=== PATIENT | male | born 1970 | race Caucasian/White ===

== ENCOUNTER 2018-02-16 10:46 | Emergency (ER) | payer MEDICAID ==
[~2018-02-16] VITALS: Ht 172.7 cm; Wt 92.3 kg
[2018-02-16 10:56] VITALS: BP 147/94
--- NOTE | 2018-02-16 11:03 | NUR ---
PATIENT PRESENTS TO ED WITH n/v/d x 1 week . SKIN IS PINK/WARM/DRY; AAOX4 WITH EVEN AND STEADY GAIT; LUNGS CLEAR BL; HR EVEN AND REGULAR; PT DENIES ANY FEVER, CP, SOB, OR COUGH AT THIS TIME; PATIENT STATES PAIN OF 6/10 AT THIS TIME; VSS; PATIENT POSITIONED FOR COMFORT; HOB ELEVATED; BEDRAILS UP X2; BED DOWN. ER MD MADE AWARE OF PT STATUS.
--- NOTE | 2018-02-16 11:03 | NUR ---
PT AMBULATED TO BED 12
--- NOTE | 2018-02-16 11:35 | NUR ---
at bedside evaluating pt.
[2018-02-16] MEDS ORDERED: ONDANSETRON 4 MG ODT PO ONE (11:45)
--- NOTE | 2018-02-16 12:20 | NUR ---
Note undone in EDM - 02/16/18 at 1226 by [email or web address] PATIENT PRESENTS TO ED WITH n/v/d x 1 week v/s t 97.4 p 85 r 18 b/p 147/94 . PT states N/V/D;x 1 week SKIN IS PINK/WARM/DRY; AAOX4 WITH EVEN AND STEADY GAIT; LUNGS CLEAR BL; HR EVEN AND REGULAR; PT DENIES ANY FEVER, CP, SOB, OR COUGH AT THIS TIME; PATIENT STATES PAIN OF 0/10 AT THIS TIME; VSS; PATIENT POSITIONED FOR COMFORT; HOB ELEVATED; BEDRAILS UP X2; BED DOWN. ER MD MADE AWARE OF PT STATUS.
[2018-02-16 12:26] VITALS: BP 142/88
--- NOTE | 2018-02-16 12:28 | NUR ---
Patient discharged with v/s stable. Written and verbal after care instructions given and explained. Patient alert, oriented and verbalized understanding of instructions. Ambulatory with steady gait. All questions addressed prior to discharge. ID band removed. Patient advised to follow up with PMD. Rx of motrin, zofran.and cipro given. Patient educated on indication of medication including possible reaction and side effects. Opportunity to ask questions provided and answered.
== END 2018-02-16 12:28 | disposition home or self-care (01) ==
LOC: MED 10:46
DX: R10.32 Left lower quadrant pain (principal); R11.2 Nausea with vomiting, unspecified; R19.7 Diarrhea, unspecified; Z88.0 Allergy status to penicillin
CPT/HCPCS: 99283; S0119

== ENCOUNTER 2018-03-29 12:50 | Inpatient (IN) | payer MEDICAID ==
[~2018-03-29] VITALS: Ht 177.8 cm; Wt 94.8 kg
--- NOTE | 2018-03-29 01:00 | NUR ---
PT IN BED SLEEPING AROUSABLE TO NAME. PT ALLOWED STAFF TO TAKE THE MIDNIGHT V/S WITHOUT ISSUE. PT IV SITE PATNET AND IV RUNNING ORDERED. NO S/S OF SEZIURE ACTIVITY BUT SEIZURE PRECACUTIONS IN PLACE ALSO BED IS LOW WITH CALL ESTEBAN IN REACH AND BED IN LOW POSITION.
[2018-03-29 12:53] VITALS: BP 161/96
--- NOTE | 2018-03-29 13:00 | NUR ---
47/M BIB MOTHER C/O LOWER ABD & N/V/D X 3 DAYS. HX OF HTN, SLEEP APNEA & SEIZURES AND SEEN HERE FOR SAME ABOUT TWO WEEKS AGO. ABD: SOFT. SKIN IS PINK/WARM/DRY; AAOX4 WITH EVEN AND STEADY GAIT; LUNGS CLEAR BL; HR EVEN AND REGULAR; PT DENIES ANY FEVER, CP, SOB, OR COUGH AT THIS TIME; PATIENT STATES PAIN OF 6/10 AT THIS TIME. PATIENT POSITIONED FOR COMFORT; HOB ELEVATED; BEDRAILS UP X2; BED DOWN. KRISTIN ANDERSON MADE AWARE OF PT STATUS. Addendum: 03/29/18 at 1632 by [email or web address] pt stated don't take any meds .
--- NOTE | 2018-03-29 13:08 | NUR ---
Sofia moreno in [facility] - 03/29/18 at 1328 by [email or web address] Patient being evaluated by DR BIANCHI at bedside.
--- NOTE | 2018-03-29 13:11 | NUR ---
Dr. Neff evaluating patient at bedside.
[2018-03-29] MEDS ORDERED: MORPHINE SULFATE 4 MG/ML SYR IVP ONE ×3 (13:15→15:40)
[2018-03-29] MEDS ORDERED: ONDANSETRON 4 MG/2 ML VIAL IVP ONE (13:15)
[2018-03-29] MEDS ORDERED: NACL 0.9% 1,000 ML IV ONE (13:15)
[2018-03-29 13:29] LABS: BASOPHILS # (AUTO) 0.1 K/uL (0.00-0.22); BASOPHILS % (AUTO) 1.4 % (0.0-2.0); EOSINOPHILS % (AUTO) 0.5 % (0.0-4.0); HEMATOCRIT 47.8 % (36-52); HEMOGLOBIN 16.7 g/dL (12.0-18.0); LYMPHOCYTES # (AUTO) 1.1 K/uL (2.0-11.5); LYMPHOCYTES % (AUTO) 24.8 % (20.5-51.1); MEAN CORPUSCULAR HEMOGLOBIN 33 pg (27-31); MEAN CORPUSCULAR HGB CONC 35 g/dL (33-37); MEAN CORPUSCULAR VOLUME 94.2 fL (80-94); MONOCYTES # (AUTO) 0.6 K/uL (0.8-1.0); MONOCYTES % (AUTO) 13.7 % (1.7-9.3); NEUTROPHILS # (AUTO) 2.6 K/uL (1.8-7.7); NEUTROPHILS % (AUTO) 59.6 % (42.2-75.2); PLATELET COUNT (AUTO) 309 K/uL (140-450); RED BLOOD CELL COUNT(AUTO) 5.07 MIL/uL (4.20-6.10); RED CELL DISTRIBUTION WIDTH 13.7 % (11.6-13.7); WHITE BLOOD COUNT (AUTO) 4.3 K/uL (4.8-10.8)
[2018-03-29 13:49] LABS: ANION GAP 14.4 (8-16); CARBON DIOXIDE 25.5 mmol/L (21-32); POTASSIUM 3.9 mmol/L (3.5-5.1); TOTAL BILIRUBIN 0.6 mg/dL (0.0-1.0)
[2018-03-29 14:00] LABS: ALBUMIN 3.5 g/dL (3.4-5.0)
--- NOTE | 2018-03-29 14:40 | NUR ---
PT TAKEN TO CT VIA GURHELENA ACCOMPANIED BY HYDROMETEOROLOGIST.
--- NOTE | 2018-03-29 14:49 | NUR ---
PT RETURNED FROM CT VIA RNEY ACCOMPANIED BY sonarDesign.
--- NOTE | 2018-03-29 15:38 | NUR ---
Patient being reevaluated by DR BIANCHI at bedside.
[2018-03-29] MEDS ORDERED: LEVOFLOXACIN 750 MG/D5W PREMIX 150 ML IV ONE (15:40)
[2018-03-29] MEDS ORDERED: metroNIDAZOLE 500 MG/NS PREMIX 100 ML IV ONE (15:40)
[2018-03-29] MEDS ORDERED: ONDANSETRON 4 MG/2 ML VIAL IM/IVP PRN (15:50)
[2018-03-29] MEDS: NACL 0.9% 1,000 ML IV SCH (15:50)
[2018-03-29] MEDS ORDERED: ACETAMINOPHEN 325 MG TAB PO PRN (15:50)
[2018-03-29] MEDS ORDERED: DOCUSATE SODIUM 100 MG GELCAP PO PRN (15:50)
[2018-03-29] MEDS ORDERED: HYDROcodone/APAP 7.5/325 MG 1 TAB PO PRN (15:50)
--- NOTE | 2018-03-29 16:07 | NUR ---
Dr. Miles evaluating patient at bedside.
--- NOTE | 2018-03-29 16:28 | NUR ---
x ray at bedside.
--- NOTE | 2018-03-29 16:47 | NUR ---
Patient will be admitted to care of DR CRESPO. Admited to TELE. Will go to room 112B. Belongings list completed. Report to MADELINE MONTES.
[2018-03-29 16:50] VITALS: BP 124/89
[2018-03-29 16:50] LABS: APPEARANCE,URINE CLOUDY (CLEAR); BILIRUBIN,URINE NEGATIVE (NEGATIVE); BLOOD, URINE 1+ (NEGATIVE); COLOR,URINE YELLOW (YELLOW); LEUKOCYTE ESTERASE ,URINE NEGATIVE (NEGATIVE); NITRITE, URINE NEGATIVE (NEGATIVE); PH,URINE 5.5 (5.0-9.0); UGLUCOSE NEGATIVE (NEGATIVE)
--- NOTE | 2018-03-29 16:50 | NUR ---
PATIENT ARRIVED VIA GURNEY FROM E.. PATIENT ABLE TO AMBULATE FROM GURNEY TO BED. PATIENT IS ALERT AND ORIENTED X4 AT THIS TIME. RECEIVED REPORT FROM E.R. NURSE. PATIENT ACCOMPANIED BY FAMILY MEMBER. NO SIGNS OF NAUSEA OR VOMITING. NO COMPLAINTS OF DIARRHEA AT THIS TIME. NO PAIN NOTED. NO SIGNS OF RESPIRATORY DISTRESS. PATIENT HAS FLAGYL HANGING AT 100 ML/HR. WILL FINISH IV BAG AND HANG LEVAQUIN NEXT. SWABBED PATIENT'S NOSE FOR MRSA SPECIMEN. APPLIED TELE MONITOR LEADS TO PATIENT. WILL CONTINUE TO MONITOR PATIENT.
[2018-03-29 16:52] LABS: BARBITURATE, URINE NEG. ng/ml (NEG <=200); BENZODIAZEPINE, URINE NEG. ng/mL (NEG <=200); CANNABINOID, URINE NEG. ng/mL (NEG <=50); COCAINE, URINE NEG. ng/mL (NEG <=300); OPIATE, URINE NEG. ng/mL (NEG <=2000); PHENCYCLIDINE SCREEN,URINE NEG. ng/mL (NEG <=25)
[2018-03-29 17:01] LABS: PROTHROMBIN TIME 13.5 secs (10.8-13.4)
[2018-03-29 17:09] LABS: RBC,URINE 0-5 (RARE) /HPF (0-5); URINE AMORPHOUS URATE 3+ /HPF (None Seen); WBC,URINE 0-5 (RARE) /HPF (0-5)
[2018-03-29 17:16] LABS: CHOL/HDL RATIO 2.7 (1-4.5); FREE T4 (FREE THYROXINE) 1.13 ng/dL (0.76-1.46); MAGNESIUM 1.6 mg/dL (1.8-2.4); PHOSPHORUS 4.1 mg/dL (2.5-4.9); THYROID STIMULATING HORMONE 4.53 uIU/mL (0.34-3.74)
[2018-03-29] MEDS ORDERED: MAGNESIUM OXIDE 400 MG TAB PO SCH (17:35)
[2018-03-29] MEDS ORDERED: LISINOPRIL 10 MG TAB PO SCH (17:35)
--- NOTE | 2018-03-29 18:22 | NUR ---
PATIENT RESTING AT THIS TIME. NO DISTRESS NOTED. WILL CONTINUE TO MONITOR PATIENT.
--- NOTE | 2018-03-29 19:20 | NUR ---
REPORT RECIEVED FROM MADELINE RN, PT AT BEDSIDE PT RESTING IN BED, WITH C/O OF 6/10 PAIN IN ABDOMEN. PT SAID THAT HE HAD A SMALL LOOSE BM THIS MORNING. PT DECLINED NORCO AT THIS TIME. IV SITE PT AND INTACT NO S/S OF INFILTRATION LEVAQUIN RUNNING AT 100 MLS/HR.
--- NOTE | 2018-03-29 19:29 | NUR ---
GAVE REPORT TO NIGHTSHIFT NURSE AT BEDSIDE. PATIENT FAMILY MEMBER AT BEDSIDE. PATIENT IN STABLE CONDITION.
[2018-03-29 20:00] VITALS: BP 155/104
--- NOTE | 2018-03-29 20:06 | NUR ---
PT ENCOURAGED AND REMINDED THAT WE ARE AWAITING A STOOL SAMPLE TO BE PROCESSED BY LAB FOR OCCULT BLOOD WBCS. PT STATES THAT HE IS UNABLE TO PROVIDE A SAMPLE AT THIS TIME.
[2018-03-29] MEDS: KETOROLAC 30 MG/ML VIAL IVP PRN (20:41)
[2018-03-29] MEDS: metroNIDAZOLE 500 MG/NS PREMIX 100 ML IV SCH (20:47)
--- NOTE | 2018-03-29 21:38 | NUR ---
LAB CALLED TO REPORT CRITICAL HI LEVEL OF LACTIC ACID AT 2.3. DR MONDRAGON MADE AWARE. LAB WAS CALLED BACK TO DOUBLE CHECK FOR AN ORDER FOR REDRAW REQUESTED BY DR MONDRAGON. LAB WILL RE DRAW LACTIC ACID IN ABOUT 45 MINUTES SPOKE WITH YESENIA IN LAB.
--- NOTE | 2018-03-29 22:20 | NUR ---
REPEAT DRAW OF LACTIC ACID RESULTS IS 1.8
--- NOTE | 2018-03-29 22:30 | NUR ---
PT PLACED ON CPAP BY RT. PT HAD NO COMPLAINTS AT THIS QUIQUE, BUT HAS YET TO HAVE A BM THIS SHIFT.
--- NOTE | 2018-03-29 22:31 | NUR ---
INFORMED BY RT PT IS NOW ON CPAP AT +5
--- NOTE | 2018-03-29 22:42 | NUR ---
PT SAID HE FEELS BETTER AFTER TORADOL SHOT PAIN LEVEL 2/10 HE IS RESTING AND IS ON CPAP MACHINE. B/P AT THIS TIME IS 136/86. BED IN LOW POSITION AND SIDE RAILS UP. SEIZURE PRECAUTIONS IN EFFECT.
[2018-03-30] VITALS: BP 127/94
--- NOTE | 2018-03-30 | NUR ---
V/S WITHIN NORMAL LIMITS. PT STABLE, NO SIGNS OF DISTRESS NOTED AT THIS TIME. BED IN LOWEST POSITION, CALL LIGHT WITHIN REACH. WILL CONTINUE TO MONITOR.
[2018-03-30] MEDS: NACL 0.9% 1,000 ML IV SCH ×2 (02:29→12:23)
--- NOTE | 2018-03-30 03:00 | NUR ---
PT IN BED SLEEPING COMFORTABLY IV FLUIDS NACL RUNNING AT 100 MLS ORDERED. IV SITE PATENT. PT WEARING CPAP WHICH IS SET TO 5. PT IN LOW BED WITH SIDE RAILS UP AND CALL ESTEBAN IN REACH.
[2018-03-30 04:00] VITALS: BP 132/84
--- NOTE | 2018-03-30 04:30 | NUR ---
V/S WITHIN NORMAL LIMITS. PT STABLE, NO SIGNS OF DISTRESS NOTED AT THIS TIME. BED IN LOWEST POSITION, CALL LIGHT WITHIN REACH. WILL CONTINUE TO MONITOR.
[2018-03-30] MEDS: metroNIDAZOLE 500 MG/NS PREMIX 100 ML IV SCH ×3 (04:47→21:49)
[2018-03-30 06:06] LABS: BASOPHILS % (AUTO) 0.9 % (0.0-2.0); EOSINOPHILS # (AUTO) 0.1 K/uL (0-0.4); EOSINOPHILS % (AUTO) 3.6 % (0.0-4.0); HEMATOCRIT 43.7 % (36-52); HEMOGLOBIN 15.2 g/dL (12.0-18.0); LYMPHOCYTES # (AUTO) 1.3 K/uL (2.0-11.5); LYMPHOCYTES % (AUTO) 32.7 % (20.5-51.1); MEAN CORPUSCULAR HEMOGLOBIN 33 pg (27-31); MEAN CORPUSCULAR HGB CONC 35 g/dL (33-37); MEAN CORPUSCULAR VOLUME 95.4 fL (80-94); MONOCYTES # (AUTO) 0.5 K/uL (0.8-1.0); MONOCYTES % (AUTO) 12.5 % (1.7-9.3); NEUTROPHILS # (AUTO) 1.9 K/uL (1.8-7.7); NEUTROPHILS % (AUTO) 50.3 % (42.2-75.2); PLATELET COUNT (AUTO) 263 K/uL (140-450); RED BLOOD CELL COUNT(AUTO) 4.58 MIL/uL (4.20-6.10); RED CELL DISTRIBUTION WIDTH 13.4 % (11.6-13.7); WHITE BLOOD COUNT (AUTO) 3.8 K/uL (4.8-10.8)
--- NOTE | 2018-03-30 06:31 | NUR ---
UNABLE TO COLLECT STOOL SAMPLE FOR OCCULT BLOOD, STOOL WBC, AND STOOL CULTURE. PT HAS NOT HAD BM THROUGHOUT SHIFT. PT STABLE, NO SIGNS OF DISTRESS NOTED AT THIS TIME. BED IN LOWEST POSITION, CALL LIGHT WITHIN REACH. WILL CONTINUE TO MONITOR.
[2018-03-30 06:43] LABS: ANION GAP 12.7 (8-16); CARBON DIOXIDE 26.7 mmol/L (21-32); CREATININE 0.9 mg/dL (0.7-1.3); MAGNESIUM 1.8 mg/dL (1.8-2.4); PHOSPHORUS 3.5 mg/dL (2.5-4.9); POTASSIUM 3.4 mmol/L (3.5-5.1)
--- NOTE | 2018-03-30 07:21 | NUR ---
ENDORSED PT TO DAY SHIFT RN FOR CONTINUITY OF CARE. PT IN STABLE CONDITION.
--- NOTE | 2018-03-30 07:30 | NUR ---
RECEIVED PT REPORT FROM CORRESPONDENCE RENEW CLERK RN. PT IS AAOX4, PT HAS IV ON THE LEFT HAND, PATENT, INTACT, FLUSHING WELL, NO S/S OF RESPIRATORY DISTRESS NOTED, C/O ABD PAIN 5/10, WILL MEDICATE. MADE PT AWARE OF STOOL SAMPLED IS NEEDED. MADE PT AWARE OF NPO STATUS. DISCUSSED PLAN OF CARE WITH PT, PT VERBALIZED UNDERSTANDING, SAFETY PRECAUTIONS ARE IN PLACE, CALL LIGHT WITHIN REACH, WILL CONTINUE TO MONITOR.
--- NOTE | 2018-03-30 07:45 | NUR ---
RECEIVED PATIENT ON ROOM AIR, O2 SAT 97%. ON CONTINUOUS PULSE OX. CONT PULSE OX ON AND FUNCTIONING, ALARMS ON AND AUDIBLE. NO RESPIRATORY DISTRESS NOTED AT THIS TIME. WILL CONTINUE TO MONITOR.
[2018-03-30 08:00] VITALS: BP 138/88
[2018-03-30] MEDS: KETOROLAC 30 MG/ML VIAL IVP PRN ×2 (08:10→14:03)
[2018-03-30] MEDS: PSYLLIUM 12.2 GM/PKT PO SCH (08:10)
[2018-03-30] MEDS: LISINOPRIL 10 MG TAB PO SCH (08:12)
[2018-03-30] MEDS: ATORVASTATIN 20 MG TAB PO SCH (08:12)
[2018-03-30] MEDS: MAGNESIUM OXIDE 400 MG TAB PO SCH (08:12)
[2018-03-30] MEDS: LACTOBACILLUS RHAMNOSUS GG 1 EACH CAP PO SCH (08:13)
--- NOTE | 2018-03-30 09:06 | NUR ---
PATIENT HAS BEEN SCREENED AND CATEGORIZED HIGH NUTRITION RISK. PATIENT WILL BE SEEN WITHIN 1-2 DAYS OF ADMISSION. 03/30/18 03/31/[address]
[2018-03-30] MEDS ORDERED: POTASSIUM CHLORIDE 10 MEQ TABER PO SCH (10:30)
--- NOTE | 2018-03-30 12:39 | NUR ---
PATIENT COMPLAINED OF STOMACH PAIN 6/10 PERSISTENT. NORCO WAS OFFERED, PATIENT REFUSED, AND STATED HE DID NOT WANT TO TAKE ANY NARCOTIC. INFORMED PATIENT TORADOL IS NOT AVAILABLE FOR ANOTHER 2 HOURS. PATIENT VERBALIZED UNDERSTANDING AND STATED HE WOULD WAIT FOR THAT. WILL INFORMED PRIMARY NURSE
--- NOTE | 2018-03-30 15:30 | NUR ---
03/30/18 RD INITIAL ASSESSMENT COMPLETED PLEASE REFER TO NUTRITION ASSESSMENT UNDER CARE ACTIVITY FOR ESTIMATED NUTRITIONAL NEEDS. 1. CONTINUE NPO MEDICALLY APPROPRIATE 2. IF/WHEN MEDICALLY APPROPRIATE, CONSIDERED ADVANCED DIET TOLERATED TO CARDIAC DIET. 3. RD TO FOLLOW-UP 3-5 DAYS,MODERATE RISK SUZY CHERY, RD
[2018-03-30 16:00] VITALS: BP 138/96
[2018-03-30] MEDS: LEVOFLOXACIN 500 MG/D5W PREMIX 100 ML IV SCH (16:13)
[2018-03-30] MEDS ORDERED: METOCLOPRAMIDE 10 MG/2 ML INJ VIAL IVP SCH (17:15)
[2018-03-30] MEDS ORDERED: BOWEL EVACUANT DRINK 4,000 ML PDS PO SCH (17:20)
--- NOTE | 2018-03-30 17:40 | NUR ---
PT SIGNED CONSENT FOR EGD AND COLONOSCOPY.
--- NOTE | 2018-03-30 18:30 | NUR ---
STOOL AND OC BLOOD COLLECTED AND SENT TO LAB.
--- NOTE | 2018-03-30 19:30 | NUR ---
ENDORSED PT TO BOAT RIDE OPERATOR RN. PT IN BED AND INSTABLE CONDITION.
--- NOTE | 2018-03-30 19:32 | NUR ---
RECEIVED PT FROM MIS RN PT IS AAOX4 AMBULATORY ON COLON PREPARATION FOR COLONOSCOPY TOMORROW, IV ON LEFT ARM INFUSING WELL NOT DISTRESS NOTED AT HIS TIME PT HAS BEEN CONSTIPATED AND STARTED TO HAVE A BM INITIAL ASSESSMENT DONE
[2018-03-30 20:00] VITALS: BP 120/80
[2018-03-30] MEDS ORDERED: MAGNESIUM CITRATE 300 ML BTL PO SCH (21:00)
--- NOTE | 2018-03-30 21:06 | NUR ---
PATIENT REFUSES TO WEAR CPAP AT THIS TIME. PATIENT STATES HE FEELS LIKE IT SUFFOCATES HIM.. PT HAS NO SOB AT THIS TIME
[2018-03-30] MEDS: LACTULOSE 20 GM/30 ML UDC PO SCH (21:48)
--- NOTE | 2018-03-30 22:15 | NUR ---
PT COOPERATIVE TO TAKE HIS MEDICINE STARTED TO HAVE LIQUID STOOL DENIES ANY PAIN
[2018-03-31] VITALS: BP 94/57
[2018-03-31] MEDS: NACL 0.9% 1,000 ML IV SCH ×3 (01:12→16:44)
--- NOTE | 2018-03-31 01:44 | NUR ---
PT HAS LIQUID STOOL BUT NOT CLEAR YET
--- NOTE | 2018-03-31 03:00 | NUR ---
PT HAVING S LIQUID STOOL CLEAR RADY FOR COLONOSCOPY NOT DISTRESS NOTED AT THIS TIME
[2018-03-31 04:00] VITALS: BP 118/81
[2018-03-31] MEDS: metroNIDAZOLE 500 MG/NS PREMIX 100 ML IV SCH ×3 (05:07→20:52)
--- NOTE | 2018-03-31 06:48 | NUR ---
PT AAOX4 VERBALIZED TO HAVE A CLEAR LIQUID STOOL, IV ON LEFT HAND INFUSING WELL
--- NOTE | 2018-03-31 06:55 | NUR ---
CONSENT ALREADY SIGNED FOR EGD AND COLONOSCOPI AND SURGICAL CHECK LIST READY PT NPO
[2018-03-31 07:01] LABS: BASOPHILS % (AUTO) 0.8 % (0.0-2.0); EOSINOPHILS # (AUTO) 0.1 K/uL (0-0.4); EOSINOPHILS % (AUTO) 2.5 % (0.0-4.0); HEMATOCRIT 41.3 % (36-52); HEMOGLOBIN 14.3 g/dL (12.0-18.0); LYMPHOCYTES # (AUTO) 1.3 K/uL (2.0-11.5); LYMPHOCYTES % (AUTO) 35.6 % (20.5-51.1); MEAN CORPUSCULAR HEMOGLOBIN 33 pg (27-31); MEAN CORPUSCULAR HGB CONC 35 g/dL (33-37); MEAN CORPUSCULAR VOLUME 95.7 fL (80-94); MONOCYTES # (AUTO) 0.5 K/uL (0.8-1.0); MONOCYTES % (AUTO) 14.3 % (1.7-9.3); NEUTROPHILS # (AUTO) 1.7 K/uL (1.8-7.7); NEUTROPHILS % (AUTO) 46.8 % (42.2-75.2); PLATELET COUNT (AUTO) 254 K/uL (140-450); RED BLOOD CELL COUNT(AUTO) 4.32 MIL/uL (4.20-6.10); RED CELL DISTRIBUTION WIDTH 13.5 % (11.6-13.7); WHITE BLOOD COUNT (AUTO) 3.7 K/uL (4.8-10.8)
[2018-03-31 07:08] LABS: ANION GAP 10.4 (8-16); CARBON DIOXIDE 30.4 mmol/L (21-32); POTASSIUM 3.8 mmol/L (3.5-5.1)
[2018-03-31 07:44] LABS: T4 (THYROXINE) 5.5 ug/dL (4.5-12.0)
--- NOTE | 2018-03-31 07:55 | NUR ---
PATIENT WAS SLEEPING COMFORTABLY, EASILY AROUSABLE BY NAME. RESPIRATION EVEN, UNLABOR ON ROOM AIR. SKIN DRY AND WARM. IV PATENT AND INTACT. VS IS STABLE. DENIED PAIN, N/V AT THIS TIME. PLAN OF CARE WAS DISCUSSED WITH PATIENT. BED AT LOW POSITIONS, SIDE RAILS UP. CALL LIGHT WITHIN REACH
[2018-03-31 08:00] VITALS: BP 130/83
[2018-03-31] MEDS: LACTOBACILLUS RHAMNOSUS GG 1 EACH CAP PO SCH (08:46)
[2018-03-31] MEDS: ATORVASTATIN 20 MG TAB PO SCH (08:46)
[2018-03-31] MEDS: SENNA 8.6 MG TAB PO SCH ×3 (08:46→16:43)
[2018-03-31] MEDS: PSYLLIUM 12.2 GM/PKT PO SCH (08:46)
[2018-03-31] MEDS: LACTULOSE 20 GM/30 ML UDC PO SCH ×2 (08:46→20:53)
[2018-03-31] MEDS: LISINOPRIL 10 MG TAB PO SCH (08:47)
[2018-03-31] MEDS: MAGNESIUM OXIDE 400 MG TAB PO SCH (08:47)
--- NOTE | 2018-03-31 11:51 | NUR ---
PATIENT WAS SLEEPING COMFORTABLY, EASILY AROUSABLE. RESPIRATION EVEN, UNLABOR ON ROOM AIR. NO DISTRESS NOTED AT THIS TIME.
[2018-03-31] MEDS ORDERED: MIDAZOLAM 2 MG/2 ML VIAL ONE (12:21)
[2018-03-31] MEDS ORDERED: fentaNYL 0.05 MG/ML VIAL ONE (12:21)
[2018-03-31] MEDS ORDERED: diphenhydrAMINE 50 MG/ML VIAL ONE (12:21)
--- NOTE | 2018-03-31 14:00 | NUR ---
PATIENT WAS TRANSFERRED TO OR. PATIENT IS STABLE AT THIS TIME.
[2018-03-31 15:00] VITALS: BP 126/90
--- NOTE | 2018-03-31 15:00 | NUR ---
PATIENT WAS TRANSFERRED BACK TO THE UNIT FROM OR. REPORT WAS GIVEN AT BEDSIDE. VS IS STABLE. PATIENT IS STABLE AT THIS TIME
[2018-03-31] MEDS ORDERED: MIDAZOLAM 2 MG/2 ML VIAL IVP ONE (15:30)
[2018-03-31] MEDS ORDERED: fentaNYL 0.05 MG/ML VIAL IVP ONE (15:30)
[2018-03-31] MEDS ORDERED: diphenhydrAMINE 50 MG/ML VIAL IVP ONE (15:30)
[2018-03-31] MEDS: LEVOFLOXACIN 500 MG/D5W PREMIX 100 ML IV SCH (16:43)
--- NOTE | 2018-03-31 17:15 | NUR ---
PATIENT AWAKE, ALERT. RESPIRATION EVEN, UNLABOR ON ROOM AIR. MED WAS GIVEN PER ORDER. NO DISTRESS NOTED AT THIS TIME. FAMILY AT BEDSIDE. CALL LIGHT WITHIN REACH
--- NOTE | 2018-03-31 19:20 | NUR ---
ENDORSEMENT GIVEN TO THE DISTRICT PLANT SUPERINTENDENT NURSE. PATIENT IS STABLE AT THIS TIME.
--- NOTE | 2018-03-31 19:21 | NUR ---
RECEIVED REPORT FROM DAYSHIFT NURSE FOR CONTINUITY OF CARE. PT SLEEPING. PT IV LEFT HAND 20G NS 100ML/HR. PT HAS NO SOB NO S/S OF DISTRESS.BED LOWERED CALL LIGHT WITHIN REACH WILL CONTINUE TO MONITOR.
--- NOTE | 2018-03-31 19:50 | NUR ---
PATIENT STATED HE IS NOT SURE IF HE WANTS CPAP ON [facility]. HE SAID HE WILL CALL ME IF HE DECIDES TO USE CPAP UNIT [facility]
--- NOTE | 2018-03-31 21:00 | NUR ---
MEDICATED THE PATIENT. PT IS SLEEPING WILL CONTINUE TO MONITOR.
--- NOTE | 2018-04-01 00:36 | NUR ---
ASSESSED PT BREATHING BECAUSE OF PT REFUSAL OF BIPAP AT NIGHT. PT PULSE O2 IS WNL. WILL CONTINUE TO MONITOR.
[2018-04-01] MEDS: NACL 0.9% 1,000 ML IV SCH ×2 (03:50→13:50)
--- NOTE | 2018-04-01 04:41 | NUR ---
PT IS ASLEEP. NO S/S OF DISTRESS. NO SOB. ON RA. WILL CONTINUE TO MONITOR.
[2018-04-01] MEDS: metroNIDAZOLE 500 MG/NS PREMIX 100 ML IV SCH ×2 (04:58→12:40)
[2018-04-01 06:39] LABS: BASOPHILS % (AUTO) 0.8 % (0.0-2.0); EOSINOPHILS # (AUTO) 0.1 K/uL (0-0.4); EOSINOPHILS % (AUTO) 2.6 % (0.0-4.0); HEMATOCRIT 42.7 % (36-52); HEMOGLOBIN 14.5 g/dL (12.0-18.0); LYMPHOCYTES # (AUTO) 1.3 K/uL (2.0-11.5); LYMPHOCYTES % (AUTO) 31.2 % (20.5-51.1); MEAN CORPUSCULAR HEMOGLOBIN 33 pg (27-31); MEAN CORPUSCULAR HGB CONC 34 g/dL (33-37); MEAN CORPUSCULAR VOLUME 96.4 fL (80-94); MONOCYTES # (AUTO) 0.5 K/uL (0.8-1.0); MONOCYTES % (AUTO) 10.8 % (1.7-9.3); NEUTROPHILS # (AUTO) 2.3 K/uL (1.8-7.7); NEUTROPHILS % (AUTO) 54.6 % (42.2-75.2); PLATELET COUNT (AUTO) 253 K/uL (140-450); RED BLOOD CELL COUNT(AUTO) 4.43 MIL/uL (4.20-6.10); RED CELL DISTRIBUTION WIDTH 12.9 % (11.6-13.7); WHITE BLOOD COUNT (AUTO) 4.3 K/uL (4.8-10.8)
--- NOTE | 2018-04-01 06:50 | NUR ---
PATIENT IS OFF CPAP SATURATION AT 98 ON ROOM AIR
--- NOTE | 2018-04-01 07:15 | NUR ---
GAVE REPORT TO DAYSHIFT NURSE AT BEDSIDE FOR CONTINUITY OF CARE.
[2018-04-01 08:00] VITALS: BP 122/85
--- NOTE | 2018-04-01 08:00 | NUR ---
INITAL ASSESSMENT PERFORMED. PATIENT ALERT AND ABLE TO VERBALIZE NEEDS. NO ACUTE DISTRESS NOTED. NO SOB. RESP EVEN AND UNLABORED. LUNG SOUNDS CLEAR BOWEL SOUNDS ACTIVE X 4 QUADS. PATIENT DENIES PAIN AT THIS TIME. PATIENT IV SITE TO L HAND 20G WITH NS @100ML/HR. VSS. PATIENT SKIN INTACT. PATIENT STATED HE IS TOLERATING REGULAR DIET WELL. DENIES NAUSEA. LBM 03/31/18. PATIENT ABLE TO AMBULATE TO BATHROOM WITHOUT DIFFICULTIES. DISCUSSED PLAN OF CARE DISCUSSED AT BEDSIDE. UPDATED BOARD. CALL LIGHT WITHIN REACH. WILL CONT TO MONITOR.
[2018-04-01] MEDS: LACTOBACILLUS RHAMNOSUS GG 1 EACH CAP PO SCH (08:57)
[2018-04-01] MEDS: ATORVASTATIN 20 MG TAB PO SCH (08:57)
[2018-04-01] MEDS: LISINOPRIL 10 MG TAB PO SCH (08:57)
[2018-04-01] MEDS: SENNA 8.6 MG TAB PO SCH ×2 (08:58→12:47)
[2018-04-01] MEDS: LACTULOSE 20 GM/30 ML UDC PO SCH (08:58)
[2018-04-01] MEDS: PSYLLIUM 12.2 GM/PKT PO SCH (08:58)
--- NOTE | 2018-04-01 10:30 | NUR ---
PATIENT IN BED RESTING AWAITING DC ORDER FROM MD. NO ACUTE DISTRESS NOTED. CALL LIGHT WITHIN REACH. WILL CONT TO MONITOR.
--- NOTE | 2018-04-01 13:00 | NUR ---
ADMINISTERED FLAGYL ORDERED. TOLERATED WELL. NO ACUTE DISTRESS NOTED.CALL LIGHT WITHIN REACH. WILL CONT TO MONITOR.
[2018-04-01] MEDS ORDERED: LISI10TA11 PO (15:23)
[2018-04-01] MEDS ORDERED: ATOR20TA40 PO (15:23)
[2018-04-01] MEDS ORDERED: LACT10CA PO (15:23)
[2018-04-01] MEDS ORDERED: LEVO750T2 PO (15:31)
[2018-04-01] MEDS ORDERED: OMEP20TC PO (15:45)
--- NOTE | 2018-04-01 16:20 | NUR ---
DISCUSSED DISCHARGE INSTRUCTIONS WITH PATIENT. PATIENT VERBALIZED UNDERSTANDING AND AGREEMENT. RX SCRIPTS IN PATIENT POSSESSION. ALL BELONGINGS IN PATIENT POSSESSION. IV SITE REMOVED AND TOLERATED WELL. LUMEN INTACT. ID BANDS REMOVED. PATIENT DRESSED AND LEAVING ACCOMPANIED WITH FRIEND IN PRIVATE VEHICLE . PATIENT LEFT WITHOUT DIFFICULTIES AMBULATING TO [facility]
[2018-04-02] MEDS ORDERED: PANTOPRAZOLE 40 MG TABEC PO SCH (06:30)
== END 2018-04-01 16:20 | disposition home or self-care (01) | DRG 720 ==
LOC: MED 12:50 → MTU 16:04
PROVIDERS: ADMIT Family Medicine; ATTEND Family Medicine
PROC: 0DJD8ZZ Inspection of Lower Intestinal Tract, Via Natural or Artificial Opening Endoscopic (ICD-10-PCS; 2018-03-31)
PROC: 0DB98ZX Excision of Duodenum, Via Natural or Artificial Opening Endoscopic, Diagnostic (ICD-10-PCS; principal; 2018-03-31 13:30)
PROC: 0DB78ZX Excision of Stomach, Pylorus, Via Natural or Artificial Opening Endoscopic, Diagnostic (ICD-10-PCS; 2018-03-31 13:30)
DX: A41.9 Sepsis, unspecified organism (principal); E43 Unspecified severe protein-calorie malnutrition; K55.9 Vascular disorder of intestine, unspecified; Z99.81 Dependence on supplemental oxygen; E87.1 Hypo-osmolality and hyponatremia; R16.0 Hepatomegaly, not elsewhere classified; K76.0 Fatty (change of) liver, not elsewhere classified; E83.42 Hypomagnesemia; E86.0 Dehydration; K27.9 Peptic ulcer, site unspecified, unspecified as acute or chronic, without hemorrhage or perforation; I10 Essential (primary) hypertension; K52.9 Noninfective gastroenteritis and colitis, unspecified; N39.0 Urinary tract infection, site not specified; E78.5 Hyperlipidemia, unspecified; G40.909 Epilepsy, unspecified, not intractable, without status epilepticus; F31.9 Bipolar disorder, unspecified; G47.30 Sleep apnea, unspecified; R74.0 Nonspecific elevation of levels of transaminase and lactic acid dehydrogenase [LDH]; E02 Subclinical iodine-deficiency hypothyroidism; K29.80 Duodenitis without bleeding; E87.6 Hypokalemia; K57.30 Diverticulosis of large intestine without perforation or abscess without bleeding; T39.395A Adverse effect of other nonsteroidal anti-inflammatory drugs [NSAID], initial encounter; K29.60 Other gastritis without bleeding; K64.8 Other hemorrhoids; Z88.0 Allergy status to penicillin; Z91.011 Allergy to milk products; Z79.899 Other long term (current) drug therapy; Z80.0 Family history of malignant neoplasm of digestive organs; Z87.81 Personal history of (healed) traumatic fracture; Z83.6 Family history of other diseases of the respiratory system; Z82.49 Family history of ischemic heart disease and other diseases of the circulatory system; Y92.89 Other specified places as the place of occurrence of the external cause; Z68.30 Body mass index [BMI] 30.0-30.9, adult
CPT/HCPCS: 36415; 71045; 76705; 80048; 80053; 80173; 80305; 81001; 82040; 82150; 82272; 83036; 83605; 83690; 83735; 83880; 84100; 84436; 84439; 84443; 84479; 84484; 85025; 85610; 85730; 86677; 87040; 87045; 87070; 87081; 88305; 89055; 93005; 94660; 96361; 96374; 96376; 99285; J1200; J1885; J1956; J2250; J2270; J2405; J2765; J3010; J3490; J7030; Q0092

== ENCOUNTER 2019-04-28 22:28 | Emergency (ER) | payer MEDICAID, OTHER ==
[~2019-04-28] VITALS: Ht 170.2 cm; Wt 81.6 kg
[~2019-04-28 22:28] MED LIST: ATOR20TA40 PO; LACT10CA PO; LEVO750T2 PO; LISI10TA11 PO; OMEP20TC PO
[2019-04-28] MEDS ORDERED: ONDANSETRON 4 MG/2 ML VIAL IVP ONE (22:40)
--- NOTE | 2019-04-28 22:41 | NUR ---
PT WHEEL CHAIR ASSISTED TO BED 11. PROVIDED WITH URINE CUP.
--- NOTE | 2019-04-28 22:52 | NUR ---
C/O LLQ ABD PAIN X3 HRS WITH NAUSEA AND DIZZINESS. NON-RADIATING PAIN. NO VOMITING. 10/10 PAIN. BOWEL SOUNDS ACTIVE X4, SOFT ABD, TENDERNESS TO LLQ. NO VOMITING OR DIARRHEA REPORTED. ERMD MADE AWARE. HIGH BLOOD PRESSURE, PATIENT ON MONITOR. ERMD AWARE.
[2019-04-28 23:06] LABS: BASOPHILS % (AUTO) 0.4 % (0.0-2.0); EOSINOPHILS # (AUTO) 0.1 K/uL (0-0.4); EOSINOPHILS % (AUTO) 1.1 % (0.0-4.0); HEMATOCRIT 48.2 % (36-52); HEMOGLOBIN 16.6 g/dL (12.0-18.0); LYMPHOCYTES # (AUTO) 1.2 K/uL (2.0-11.5); MEAN CORPUSCULAR HEMOGLOBIN 31 pg (27-31); MEAN CORPUSCULAR HGB CONC 34 g/dL (33-37); MEAN CORPUSCULAR VOLUME 88.9 fL (80-94); MONOCYTES # (AUTO) 0.8 K/uL (0.8-1.0); MONOCYTES % (AUTO) 7.8 % (1.7-9.3); NEUTROPHILS # (AUTO) 7.6 K/uL (1.8-7.7); NEUTROPHILS % (AUTO) 78.7 % (42.2-75.2); PLATELET COUNT (AUTO) 384 K/uL (140-450); RED BLOOD CELL COUNT(AUTO) 5.43 MIL/uL (4.20-6.10); RED CELL DISTRIBUTION WIDTH 13.4 % (11.6-13.7); WHITE BLOOD COUNT (AUTO) 9.7 K/uL (4.8-10.8)
[2019-04-28 23:15] LABS: ANION GAP 10.8 (8-16); CARBON DIOXIDE 29.8 mmol/L (21-32); CREATININE 1.1 mg/dL (0.7-1.3); POTASSIUM 3.6 mmol/L (3.5-5.1)
[2019-04-28] MEDS ORDERED: MORPHINE SULFATE 2 MG/ML SYR IVP ONE (23:20)
[2019-04-28] MEDS ORDERED: NACL 0.9% 1,000 ML IV ONE (23:20)
[2019-04-28 23:21] LABS: ALBUMIN 3.9 g/dL (3.4-5.0); TOTAL BILIRUBIN 0.3 mg/dL (0.0-1.0)
--- NOTE | 2019-04-28 23:40 | NUR ---
PT TO CT VIA ELBA BY TECH. ALONZO
--- NOTE | 2019-04-28 23:54 | NUR ---
PATIENT BACK FROM CT
--- NOTE | 2019-04-29 | NUR ---
PATIENT DIAPHORETIC, C/O PAIN. WENDY MADE AWARE. REPORT GIVEN TO JYOTI MONSALVE WHILE ON LUNCH BREAK.
[2019-04-29] MEDS ORDERED: MORPHINE SULFATE 2 MG/ML SYR IVP ONE (00:15)
[2019-04-29] MEDS ORDERED: ONDANSETRON 4 MG/2 ML VIAL IVP ONE (00:15)
[2019-04-29 00:50] LABS: APPEARANCE,URINE CLEAR (CLEAR); BILIRUBIN,URINE NEGATIVE (NEGATIVE); BLOOD, URINE TRACE-L (NEGATIVE); COLOR,URINE YELLOW (YELLOW); LEUKOCYTE ESTERASE ,URINE NEGATIVE (NEGATIVE); NITRITE, URINE NEGATIVE (NEGATIVE); PH,URINE >=9.0 (5.0-9.0); UGLUCOSE NEGATIVE (NEGATIVE)
--- NOTE | 2019-04-29 00:53 | NUR ---
patient amb with steady gait to restroom.
[2019-04-29] MEDS ORDERED: MAGNESIUM CITRATE 300 ML BTL PO ONE (01:00)
[2019-04-29] MEDS ORDERED: LACTULOSE 20 GM/30 ML UDC PO ONE (01:00)
--- NOTE | 2019-04-29 01:00 | NUR ---
PATIENT STATES NAUSEA, ERMD AWARE.
[2019-04-29 01:07] LABS: RBC,URINE 11-20 (MOD) /HPF (0-5); WBC,URINE NONE SEEN /HPF (0-5)
[2019-04-29 01:26] LABS: BARBITURATE, URINE NEG. ng/ml (NEG <=200); BENZODIAZEPINE, URINE NEG. ng/mL (NEG <=200); CANNABINOID, URINE POS. ng/mL (NEG <=50); COCAINE, URINE NEG. ng/mL (NEG <=300); OPIATE, URINE NEG. ng/mL (NEG <=2000); PHENCYCLIDINE SCREEN,URINE NEG. ng/mL (NEG <=25)
[2019-04-29] MEDS ORDERED: METOCLOPRAMIDE 10 MG/2 ML INJ VIAL IVP ONE (01:30)
--- NOTE | 2019-04-29 01:30 | NUR ---
PATIENT STATES HE IS FEELING BETTER AFTER REGLAN.
[2019-04-29 01:54] VITALS: BP 170/104
--- NOTE | 2019-04-29 01:55 | NUR ---
Patient discharged with v/s stable. Written and verbal after care instructions given and explained. Patient alert, oriented and verbalized understanding of instructions. Ambulatory with steady gait. All questions addressed prior to discharge. ID band removed. Patient advised to follow up with PMD. Rx of LACTULOSE, MIRALAX given. Patient educated on indication of medication including possible reaction and side effects. Opportunity to ask questions provided and answered.
== END 2019-04-29 01:54 | disposition home or self-care (01) ==
LOC: MED 22:28
DX: F15.10 Other stimulant abuse, uncomplicated (principal); K59.00 Constipation, unspecified; I10 Essential (primary) hypertension; Z79.899 Other long term (current) drug therapy; Z88.0 Allergy status to penicillin; Z91.018 Allergy to other foods
CPT/HCPCS: 36415; 74176; 80053; 80305; 81001; 83690; 84484; 85025; 93005; 96374; 96375; 96376; 99284; J2270; J2405; J2765; J7030; 96365

== ENCOUNTER 2019-09-05 11:02 | Inpatient (IN) | payer OTHER ==
[~2019-09-05] VITALS: Ht 175.3 cm; Wt 83.9 kg
[~2019-09-05 11:02] MED LIST changes: -OMEP20TC PO; +[UNRECOGNIZED DRUG - CODE] PO
--- NOTE | 2019-09-05 11:02 | NUR ---
Patient BIBA ALS, transferred to bed 5. RN evaluating patient at bedside.
[2019-09-05 11:11] VITALS: BP 105/69
--- NOTE | 2019-09-05 11:11 | NUR ---
PT BIBA C/O SI. PT STATED "I TRIED TO KILL MYSELF, LIFE SUCKS". PT USED MEDICATION TO TRY TO HURT HIMSELF, UNSURE OF HOW MUCH MEDICATION HE TOOK, PT STATES HE TOOK WHOLE BOTTLE OG MINIPRESS 2MG, MEDICATION WAS PRESCRIBED AUG 26 WITH 30 TABLETS, BOTTLE IS EMPTY. PT ASLO STATES HE TOOK ANOTHER BOTTLE OF MEDS, BUT DOES NOT KNOW THE NAME OR HOW MUCH. PT DENIES PAIN, N/V, OR DIARRHEA AT THIS TIME. PT PUT ON 5150 HOLD BY NICKI CARRERA. KRISTIN ANDERSON TO SEE PT. MEDHX:SEIZURE
--- NOTE | 2019-09-05 11:23 | NUR ---
SPOKE W/ LINDSAY FROM POISEN CONTROL HE STATED CHARCOAL TO PREVENT SOME ABSORPTION, PHENYLEPHRINE IF PRESSORS ARE NEEDED, TOXICOLOGY, AND NS. KRISTIN ANDERSON NOTIFIED
[2019-09-05] MEDS ORDERED: ACTIVATED CHARCOAL 50 GM/240 ML TUBE PO ONE (11:55)
[2019-09-05] MEDS ORDERED: NACL 0.9% 1,000 ML IV ONE (11:55)
[2019-09-05 12:16] LABS: HEMATOCRIT 41.6 % (36-52); MEAN CORPUSCULAR HEMOGLOBIN 31 pg (27-31); MEAN CORPUSCULAR HGB CONC 34 g/dL (33-37); MEAN CORPUSCULAR VOLUME 92.6 fL (80-94); PLATELET COUNT (AUTO) 341 K/uL (140-450); RED CELL DISTRIBUTION WIDTH 14.5 % (11.6-13.7)
[2019-09-05 12:36] LABS: ANION GAP 16.9 (8-16); CARBON DIOXIDE 24.2 mmol/L (21-32); CREATININE 0.9 mg/dL (0.7-1.3); POTASSIUM 4.1 mmol/L (3.5-5.1)
[2019-09-05 12:37] LABS: SALICYLATE < 2.8 mg/dL (2.8-20.0)
[2019-09-05 12:41] LABS: ALBUMIN 3.4 g/dL (3.4-5.0); TOTAL BILIRUBIN 0.4 mg/dL (0.0-1.0)
--- NOTE | 2019-09-05 12:42 | NUR ---
PT HYPERTENSIVE AT 99/64 AND FATIGUED, KRISTIN ANDERSON MADE AWARE. PER KRISTIN ANDERSON NS RUNNING AT 100ML/HR IS NOW TO BE RUN WIDE OPEN
[2019-09-05 12:51] LABS: BASOPHILS % (MANUAL) 0 % (0-2); EOSINOPHILS % (MANUAL) 1 % (0-4); LYMPHOCYTES % (MANUAL) 16 % (20-46); MONOCYTES % (MANUAL) 8 % (5-12)
[2019-09-05 13:25] LABS: CREATINE KINASE MB 0.7 ng/mL (0-3.6)
--- NOTE | 2019-09-05 13:30 | NUR ---
PT UNABLE TO PROVIDE URINE AT THIS TIME, PT REFUSED STRAGIHT CATH, KRISTIN ANDERSON NOTIFIED.
--- NOTE | 2019-09-05 14:00 | NUR ---
PT SLEEPING IN BED, AROUSABLE TO VOICE, AAOX4, MARÍA EMT SITTING 1-1 WITH PT FOR SUICIDE PREVENTION.
--- NOTE | 2019-09-05 16:08 | NUR ---
PT RESTING IN BED, MARÍA EMT SITTING 1-1, VSS. PT ASKED FOR HIS PHONE TO CALL GIRLFRIEND. INFORMED PT THAT WE CANNOT GIVE HIM HIS PHONE BECAUSE HE IS ON A 5150 HOLD, BUT DID PROVIDE PT WITH A PHONE TO MAKE A PHONE CALL. PT DENIES ANY PAIN AT THIS TIME.
--- NOTE | 2019-09-05 18:06 | NUR ---
PT MOM AT BEDSIDE, MARÍA EMT 1-1. VSS. PT ASLEEP, BUT AROUSABLE TO NAME, AAOX4.
[2019-09-05] MEDS ORDERED: NACL 0.9% 1,000 ML IV SCH (18:51)
[2019-09-05] MEDS ORDERED: ONDANSETRON 4 MG/2 ML VIAL IVP PRN (18:55)
[2019-09-05] MEDS ORDERED: ALBUTEROL 0.083% 2.5 MG/3 ML NEBU INH PRN (18:55)
[2019-09-05] MEDS ORDERED: ACETAMINOPHEN 325 MG TAB PO PRN (18:55)
--- NOTE | 2019-09-05 19:30 | NUR ---
PT RESTING AT IN BED. PT AOX4 GCS 15. PT STATES HE TRIED TO KILL HIMSELF TODAY. PT PLACED ON 5150 HOLD. PT HAS HAD HX OF ATTEMPT SUICIDE IN PAST. PT DENIES SI OR HI AT THIS TIME. PT DENIES AH OR VH AT THIS TIME. SITTER AT BEDSIDE. VSS. WILL CONTIUE TO MONITOR.
--- NOTE | 2019-09-05 20:47 | NUR ---
NO CHANGES FROM PREVIOUS ASSESSMENT. VSS. PT ABLE TO GIVE URINE SAMPLE. SENT TO LAB. PT APPEARS TO BE IN NO DISTRESS.
[2019-09-05 21:20] VITALS: BP 117/81
--- NOTE | 2019-09-05 21:30 | NUR ---
RECEIVED PT FROM PAULIE MONTES ER NURSE. PT BROUGHT UP BY ELBA. HE IS AOX4. PT HERE ON 5150 HOLD DUE TO OVERDOSE OF HIS MEDICATION. HOLD STARTED 09/05/19 AT 11 AM. PT SKIN INTACT IV SITE ON RAC 20 G INTACT AND FLUSHED PATENT.V/S T 98 P 74 R 18 B/P 120/89 02 IS 97% ON ROOM AIR. 1 :1 SITTER AT BEDSIDE.
[2019-09-05 22:27] LABS: BARBITURATE, URINE NEG. ng/ml (NEG <=200); BENZODIAZEPINE, URINE NEG. ng/mL (NEG <=200); CANNABINOID, URINE NEG. ng/mL (NEG <=50); COCAINE, URINE NEG. ng/mL (NEG <=300); OPIATE, URINE NEG. ng/mL (NEG <=2000); PHENCYCLIDINE SCREEN,URINE NEG. ng/mL (NEG <=25)
--- NOTE | 2019-09-05 23:00 | NUR ---
PT IN BED SLEEPING NO S/S OF PAIN OR DISTRESS NOTED, 1:1 SITTER AT BEDSIDE.
--- NOTE | 2019-09-05 23:28 | NUR ---
RECEIVED PATIENT ON 2L/M VIA NASAL CANNULA. SPO2 98 HEART RATE 78. PATIENT AWAKE AND ALERT. PATIENT STATED THAT HE DOES NOT USE OXYGEN AT HOME OR ANY RESPIRATORY MEDS. PATIENT STATED THAT HE WAS A 20 PACK YEAR SMOKER BUT QUIT A FEW MONTHS AGO. B/S: DIMINISHED BILATERALLY. PLACED PATIENT ONTO ROOM AIR, SPO2 MAINTAINED AT 95.
[2019-09-06] VITALS: BP 114/77
[2019-09-06 04:00] VITALS: BP 117/81
--- NOTE | 2019-09-06 04:30 | NUR ---
PT IN BED ASLEEP V/S FOLLOWS T 97.7 P 77 R 18 B/P 147/44 02 95% ON ROOM AIR. 1:1 SITTER AT BEDSIDE.
--- NOTE | 2019-09-06 07:13 | NUR ---
RECEIVED REPORT FROM COIL REWIND MACHINE OPERATOR NURSE. PT AAOX4, NO C/O PAIN AT THIS TIME. PT STATES "NO" WHEN ASKED IF HE HAS THOUGHTS OF HURTING HIMSELF, 1:1 SITTER AT BEDSIDE. PT ON MERCHANDISER, VSS. RESPIRATIONS EVEN AND UNLABORED ON RA. ABD SOFT, ACTIVE BS. SKIN IS INTACT, WARM TO TOUCH. SAFETY MEASURES IN PLACE, CALL LIGHT WITHIN REACH. REVIEWED POC WITH PT, PT VERBALIZED UNDERSTANDING.
[2019-09-06 07:44] LABS: HEMATOCRIT 37.6 % (36-52); HEMOGLOBIN 12.6 g/dL (12.0-18.0); MEAN CORPUSCULAR HEMOGLOBIN 31 pg (27-31); MEAN CORPUSCULAR HGB CONC 33 g/dL (33-37); MEAN CORPUSCULAR VOLUME 93.5 fL (80-94); PLATELET COUNT (AUTO) 302 K/uL (140-450); RED BLOOD CELL COUNT(AUTO) 4.02 MIL/uL (4.20-6.10); RED CELL DISTRIBUTION WIDTH 14.8 % (11.6-13.7); WHITE BLOOD COUNT (AUTO) 6.8 K/uL (4.8-10.8)
[2019-09-06 08:00] VITALS: BP 119/86
--- NOTE | 2019-09-06 08:26 | NUR ---
PATIENT HAS BEEN SCREENED AND CATEGORIZED LOW NUTRITION RISK. PATIENT WILL BE SEEN WITHIN 7 DAYS OF ADMISSION. 09/12/[address]
[2019-09-06 08:37] LABS: PHOSPHORUS 3.3 mg/dL (2.5-4.9)
[2019-09-06 08:44] LABS: ANION GAP 12.8 (8-16); POTASSIUM 3.8 mmol/L (3.5-5.1)
[2019-09-06 08:45] LABS: CREATININE 0.7 mg/dL (0.7-1.3)
--- NOTE | 2019-09-06 09:00 | NUR ---
PT GIVEN PHONE PER REQUEST. PT HAS NO SIGNS OF DISTRESS AT THIS TIME.
[2019-09-06 09:39] LABS: EOSINOPHILS % (MANUAL) 2 % (0-4); LYMPHOCYTES % (MANUAL) 20 % (20-46); MONOCYTES % (MANUAL) 10 % (5-12)
--- NOTE | 2019-09-06 11:18 | NUR ---
PT RAISING VOICE WHILE ON THE PHONE WITH . PT REPORTS HAVING "LITTLE ANXIETY". WILL REPORT TO PHYSICIAN.
[2019-09-06] MEDS: LORazepam 1 MG TAB PO PRN ×2 (11:51→22:20)
--- NOTE | 2019-09-06 11:51 | NUR ---
ADMINISTERED ATIVAN PER ORDER, PT AWARE OF INDICATIONS AND POTENTIAL SIDE EFFECTS. 1:1 SITTER AT BEDSIDE.
[2019-09-06 12:00] VITALS: BP 119/82
--- NOTE | 2019-09-06 12:49 | NUR ---
KELLE/MOTHER AT BEDSIDE. PT IS CONVERSATIONAL AND HAS NO SIGNS OF DISTRESS AT THIS TIME.
--- NOTE | 2019-09-06 14:35 | NUR ---
PT IS AWARE OF DISCHARGE ORDER. PT STATES THAT HER [facility] WILL PICK HER UP AROUND 1420. PT HAS NO C/O PAIN AT THIS TIME. Addendum: 09/06/19 at 1548 by Bhavya Campbell RN CLARIFICATION: DISREGARD NOTE ABOVE. CHARTED ON WRONG PT.
--- NOTE | 2019-09-06 14:40 | NUR ---
PT IN SUPINE POSITION, RESTING IN BED. NO FEELINGS OF ANXIETY, NO C/O PAIN. WILL CONTINUE TO MONITOR.
[2019-09-06 16:00] VITALS: BP 124/85
[2019-09-06] MEDS: HYDROcodone/APAP 5/325 MG 1 TAB TAB PO PRN (17:33)
--- NOTE | 2019-09-06 17:33 | NUR ---
PT GIVEN NORCO FOR LEVEL 6/10 PAIN TO BACK AREA. WILL REASSESS WITHIN 1 HOUR.
--- NOTE | 2019-09-06 18:33 | NUR ---
PT HAS NO C/O PAIN AT THIS TIME. RESPIRATIONS EVEN AND UNLABORED ON RA.
--- NOTE | 2019-09-06 19:15 | NUR ---
ENDORSED PT TO NAIL MAKER NURSE. PT HAS NO SIGNS OF DISTRESS AT THIS TIME.
--- NOTE | 2019-09-06 19:17 | NUR ---
RECEIVED PT ON BED, AAOX4, ABLE TO MAKE NEEDS KNOWN, VITAL SIGNS STABLE, DENIES SUICIDAL IDEATION AT THIS TIME, PLAN OF CARE DISCUSSED, SITTER IN PLACE.
[2019-09-06 20:00] VITALS: BP 132/83
--- NOTE | 2019-09-06 21:00 | NUR ---
PT REQUESTING IF HE CAN START TAKING HIS PSYCH MEDS AND STATED HE DOESN'T FEEL GOOD IF HE MISSED TAKING HIS PSYCH MEDS, PT STATED TAKING SEROQUEL, LITHIUM AND BUSPAR BUT DOESN'T KNOW THE DOSES, PAGED DR COOK, AWAITING CALL BACK.
--- NOTE | 2019-09-06 22:10 | NUR ---
DR COOK HASN'T CALLED AFTER PAGED X2, DR RAINES PAGED AND NOTIFIED ABOUT PT'S PYSCH MEDS, MADE AWARE THAT PSYCH CONSULT IS NOT CALLING BACK, STATED WILL NOT ORDER ANY PSYCH MEDS AND TO PAGED THE PSYCH CONSULT, PT MADE AWARE AND VERBALIZED UNDERSTANDING.
--- NOTE | 2019-09-06 22:20 | NUR ---
PT MEDICATED WITH ATIVAN FOR ANXIETY, PT CALM AT THIS TIME, MONITORED CLOSELY, SITTER IN PLACE.
[2019-09-07] VITALS: BP 140/89
--- NOTE | 2019-09-07 | NUR ---
PT SLEEPING, EASILY AROUSABLE, VITAL SIGNS STABLE, DENIES ANY PAIN, PT WENT BACK TO SLEEP, SITTER IN PLACE, CONTINUE TO MONITOR CLOSELY.
--- NOTE | 2019-09-07 03:50 | NUR ---
PT SLEEPING, EASILY AROUSABLE, VITAL SIGNS STABLE, NO DISTRESS NOTED, MONITORED CLOSELY.
[2019-09-07 04:00] VITALS: BP 115/79
--- NOTE | 2019-09-07 06:20 | NUR ---
ROUNDS MADE, PT SLEEPING, NO DISTRESS NOTED, SITTER IN PLACE.
--- NOTE | 2019-09-07 07:00 | NUR ---
RECEIVED REPORT FROM RADIO DIVISION OFFICER NURSE. PT AAOX4, VSS, NO C/O PAIN AT THIS TIME. RESPIRATIONS EVEN AND UNLABORED ON RA. IV ON RT AC 20 GA ON SALINE LOCK, FLUSHING WITH NO RESISTANCE. ABD SOFT, ACTIVE BS THROUGHOUT. SKIN IS INTACT, WARM TO TOUCH. SAFETY MEASURES IN PLACE. [address], 1:1 SITTER AT BEDSIDE. REVIEWED POC WITH PT, PT VERBALIZED UNDERSTANDING.
--- NOTE | 2019-09-07 07:18 | NUR ---
PT SLEEPING, NO DISTRESS NOTED, SITTER IN PLACE, REPORT GIVEN TO JYOTI SALAZAR FOR CONTINUITY OF CARE.
[2019-09-07 08:00] VITALS: BP 114/78
--- NOTE | 2019-09-07 09:30 | NUR ---
PT IS RESTING IN SUPINE POSITION IN BED. RESPIRATIONS EVEN AND UNLABORED ON RA. 1:1 SITTER AT BEDSIDE.
[2019-09-07 12:00] VITALS: BP 127/81
--- NOTE | 2019-09-07 12:55 | NUR ---
RECEIVED CALL FROM DR. RCUZ, GIVEN UPDATE ON PT'S CONDITION. NO ORDERS RECEIVED AT THIS TIME.
--- NOTE | 2019-09-07 14:56 | NUR ---
LEFT VOICEMAIL FOR DR. CRUZ. AWAITING CALL BACK.
[2019-09-07 16:00] VITALS: BP 126/79
--- NOTE | 2019-09-07 16:10 | NUR ---
PT TRANSFERRED ROOMS TO [address]. STATES THAT HE WILL NOT BE EATING FOOD FROM THE HOSPITAL BECAUSE "IT'S CRAP". 1:1 SITTER AT BEDSIDE.
--- NOTE | 2019-09-07 18:48 | NUR ---
DR. CRUZ AT BEDSIDE, PT'S QUESTIONS ARE ANSWERED AND CLARIFIED.
[2019-09-07] MEDS: HYDROcodone/APAP 5/325 MG 1 TAB TAB PO PRN (19:22)
--- NOTE | 2019-09-07 19:30 | NUR ---
ENDORSED PT TO KNOT CUTTER NURSE. PT HAS NO SIGNS OF DISTRESS AT THIS TIME.
[2019-09-07] MEDS: LORazepam 1 MG TAB PO PRN (19:31)
--- NOTE | 2019-09-07 19:31 | NUR ---
RECEIVED PT ON BED, AAOX4, ABLE TO MAKE NEEDS KNOWN, DENIES SUICIDAL IDEATION AT THIS TIME BUT COMPLAINING OF ANXIETY, MEDICATED PRN WITH ATIVAN PO, PLAN OF CARE DISCUSSED, SAFETY MEASURES IN PLACE, SITTER IN PLACE.
--- NOTE | 2019-09-07 20:25 | NUR ---
DUE MEDICATIONS ADMINISTERED WITH EDUCATION PROVIDED, ALL NEEDS ATTENDED.
[2019-09-07] MEDS ORDERED: ARIPiprazole 10 MG TAB PO SCH (21:00)
[2019-09-07] MEDS ORDERED: traZODone 50 MG TAB PO SCH (21:00)
--- NOTE | 2019-09-07 23:30 | NUR ---
PT SEEN WITH EYES CLOSED, EASILY AROUSABLE, VITAL SIGNS STABLE, DENIES ANY PAIN, CONTINUE TO MONITOR CLOSELY, SITTER IN PLACE.
[2019-09-08] VITALS: BP 118/77
--- NOTE | 2019-09-08 02:30 | NUR ---
ROUNDS MADE, PT SLEEPING, NO DISTRESS NOTED, MONITORED CLOSELY, SITTER IN PLACE.
--- NOTE | 2019-09-08 05:00 | NUR ---
PT SLEEPING, NO SIGNS OF DISTRESS, AWAITING PLACEMENT FOR INPATIENT PSYCH FACILITY, SITTER IN PLACE.
--- NOTE | 2019-09-08 07:15 | NUR ---
REPORT RECEIVED FROM ORTHODONTIST VICE PRESIDENT NURSE, PT SLEEPING QUIETLY IN NO ACUTE DISTRESS, PT OX3, STATES HE DOES NOT KNOW THE CURRENT DATE OR YEAR. PT SPEAKS CLEARLY, MOVES ALL EXT, DENIES SI AT THIS TIME. ALL SAFETY MEASURES IN PLACE, SITTER AT BEDSIDE FOR SIUICIDAL PRECAUTION, WILL CONTINUE TO MONITOR
--- NOTE | 2019-09-08 07:18 | NUR ---
PT SLEEPING, NO SIGNS OF DISTRESS, REPORT GIVEN TO RN KATHY FOR CONTINUITY OF CARE.
[2019-09-08 08:00] VITALS: BP 108/74
[2019-09-08] MEDS: HYDROcodone/APAP 5/325 MG 1 TAB TAB PO PRN (08:48)
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
[2019-09-08] MEDS ORDERED: LITHIUM CARBONATE 300 MG TAB PO SCH (09:00)
--- NOTE | 2019-09-08 09:15 | NUR ---
DR CRUZ AT BEDSIDE, PT TAKEN OFF [id number] CRUZ.
--- NOTE | 2019-09-08 10:32 | NUR ---
PT 'S MOTHER AT BEDSIDE, STATS HE WANTS TO LEAVE, PT AND MOTHER INFORMED THAT HE HAS NOT BEEN DISCHARGED YET FROM HOSPITAL, DR MIRAMONTES WILL SEE HIM TODAY FOR DISPOSITION, PT WANTS TO GO HOME TO FEED HIS PETS, PT STATES HE DOES NOT HAVE ANY MEDICATION AT HOME, PT ENCOURAGED TO STAY UNTIL DR MIRAMONTES ARRIVES AND GET RX. PT AGREES TO WAIT. PT C/O DISCOMFORT AT IV SITE, IV REMOVED, CATH TIP INTACT, BLEEDING CONTORLED.
--- NOTE | 2019-09-08 13:09 | NUR ---
PT DRESSED, STATS HE WANTS TO LEAVE, PT INFORMED THAT HE HAS NOT BEEN DISCHARGED YET FROM HOSPITAL, DR MIRAMONTES WILL SEE HIM TODAY FOR DISPOSITION, PT STATES HE DOES NOT HAVE ANY MEDICATION AT HOME, PT ENCOURAGED TO STAY UNTIL DR MIRAMONTES ARRIVES AND GET RX. PT DECLINED TO WAIT, PT WALKED OUT.
--- NOTE | 2019-09-08 16:59 | NUR ---
ATTEMPTED TO CALL PATIENT TO LET HIM KNOW THAT DR MIRAMONTES DID WRITE A PRISCRIPTIONS FOR HOME MEDICATION, BUTNUMBER LISTED ON FACE SHEET, UNABLE TO REACH PATIENT, ONE NUMBER IS NOT TAKING CALLS, [id number] 'S NUMBER IS WRONG NUMBER,
== END 2019-09-08 13:05 | disposition left against medical advice (07) | DRG 817 ==
LOC: MED 11:02 → MTU 18:51
PROVIDERS: ADMIT Internal Medicine Pulmonary Disease; ATTEND Internal Medicine Pulmonary Disease
DX: T43.592A Poisoning by other antipsychotics and neuroleptics, intentional self-harm, initial encounter (principal); F32.9 Major depressive disorder, single episode, unspecified; M54.9 Dorsalgia, unspecified; G89.29 Other chronic pain; I10 Essential (primary) hypertension; Z53.29 Procedure and treatment not carried out because of patient's decision for other reasons; Z88.0 Allergy status to penicillin; Z91.011 Allergy to milk products; Y92.89 Other specified places as the place of occurrence of the external cause
CPT/HCPCS: 36415; 80048; 80053; 80305; 82550; 82553; 83735; 84100; 84484; 85025; 87081; 93005; 96360; 96361; 99291; G0480; G0482